=== PATIENT | female | born 1995 | race Caucasian/White ===

== ENCOUNTER 2023-06-08 13:15 | Emergency (ER) | payer OTHER ==
[2023-06-08 13:54] VITALS: RESP 16; BMI 28.3
[2023-06-08] MEDS ORDERED: SODIUM CHLORIDE 0.9% 1000 ML INFUS.BAG IV ONE (14:18)
[2023-06-08] MEDS ORDERED: KETOROLAC TROMETHAMINE 15 MG/ML VIAL IVPUSH ONE (14:18)
[2023-06-08] MEDS ORDERED: FAMOTIDINE 20 MG/50 ML IVPB 20 MG/50 ML MG IVPB ONE ×2 (14:18→14:36)
[2023-06-08] MEDS ORDERED: ONDANSETRON 4 MG/2 ML VIAL IVPUSH ONE (14:18)
[2023-06-08 14:31] LABS: EPITHELIAL CELLS 0-5 /hpf
[2023-06-08] MEDS ORDERED: ONDANSETRON 4 MG/2 ML VIAL ONE (14:36)
[2023-06-08] MEDS ORDERED: KETOROLAC TROMETHAMINE 15 MG/ML VIAL ONE (14:36)
[2023-06-08 15:45] LABS: HEMATOCRIT 37.7 % (32.4-45.2); HEMOGLOBIN 12.3 G/dL (10.7-15.3); MCH 25.1 pg (25.7-33.7); MCHC 32.7 g/dl (32.0-36.0); MEAN PLT VOLUME 10.8 fl (7.5-11.1); PLATELET COUNT 264.3 10^3/uL (134-434); RDW 15.4 % (11.6-15.6); WHITE BLOOD COUNT 12.7 10^3/uL (4.0-10.8)
[2023-06-08 15:46] LABS: INR 1.03 (0.83-1.09)
[2023-06-08 15:49] LABS: ACTIVATED PTT 28.8 SECONDS (25.2-36.5)
[2023-06-08 16:10] LABS: ALBUMIN 4.2 g/dl (3.4-5.0); BILIRUBIN,TOTAL 0.3 mg/dl (0.2-1); CALCIUM 9.5 mg/dl (8.5-10.1); CREATININE 1.2 mg/dl (0.6-1.3); POTASSIUM 4.2 mmol/L (3.5-5.1); TOT PROT 7.2 g/dl (6.4-8.2)
[2023-06-08] MEDS ORDERED: CEPHALEXIN MONOHYDRATE 500 MG CAPSULE (UD) PO ONE (17:18)
[2023-06-08 17:21] LABS: PLATELET ESTIMATE ADEQUATE
[2023-06-08 17:26] VITALS: BP 156/103; PULSE 58; TEMP 98.6
[2023-06-08] MEDS ORDERED: CEPHALEXIN MONOHYDRATE 500 MG CAPSULE (UD) ONE (17:29)
== END 2023-06-08 17:37 | disposition home or self-care (01) ==
LOC: FER 13:15
PROC: 3E033GC Introduction of Other Therapeutic Substance into Peripheral Vein, Percutaneous Approach (ICD-10-PCS; principal; 2023-06-08)
PROC: 3E0333Z Introduction of Anti-inflammatory into Peripheral Vein, Percutaneous Approach (ICD-10-PCS; 2023-06-08)
PROC: 3E033GC Introduction of Other Therapeutic Substance into Peripheral Vein, Percutaneous Approach (ICD-10-PCS; 2023-06-08)
DX: R10.13 Epigastric pain (principal); R11.0 Nausea; N39.0 Urinary tract infection, site not specified
CPT/HCPCS: 36415; 74176-TC; 80053; 81003; 81015; 83690; 84703; 85027; 85610; 85730; 87086; 99284-25

== ENCOUNTER 2024-03-27 16:37 | Emergency (ER) | payer OTHER ==
[2024-03-27 17:05] VITALS: BP 159/106; PULSE 95; RESP 16; TEMP 98.3; BMI 28.3
[2024-03-27] MEDS ORDERED: IBUPROFEN 400 MG TABLET (FP) PO ONE (17:49)
[2024-03-27] MEDS: IBUPROFEN 400 MG TABLET (FP) PO ONE (17:51)
[2024-03-27 17:58] LABS: HEMATOCRIT 35.6 % (32.4-45.2); HEMOGLOBIN 11.1 G/dL (10.7-15.3); MCH 24.1 pg (25.7-33.7); MCHC 31.2 g/dl (32.0-36.0); MEAN CELL VOLUME 77.3 fl (80-96); MEAN PLT VOLUME 9.9 fl (7.5-11.1); PLATELET COUNT 251.8 10^3/uL (134-434); RBC 4.61 10^6/uL (3.60-5.2); RDW 15.9 % (11.6-15.6); WHITE BLOOD COUNT 9.4 10^3/uL (4.0-10.8)
[2024-03-27 18:10] LABS: ALBUMIN 3.9 g/dl (3.4-5.0); ALK PHOS 70 U/L (45-117); ANION GAP 7 mmol/L (4-13); BILIRUBIN,TOTAL 0.2 mg/dl (0.2-1); CALCIUM 9.6 mg/dl (8.5-10.1); CHLORIDE 108 mmol/L (98-107); CO2 23 mmol/L (21-32); CREATININE 1.3 mg/dl (0.6-1.3); GLUCOSE,RANDOM 85 mg/dl (74-106); POTASSIUM 4.7 mmol/L (3.5-5.1); SGOT/AST 11 U/L (15-37); SGPT/ALT 8 U/L (7-52); SODIUM 138 mmol/L (136-145); TOT PROT 6.8 g/dl (6.4-8.2)
[2024-03-27 18:23] LABS: PLATELET ESTIMATE ADEQUATE
== END 2024-03-27 19:21 | disposition home or self-care (01) ==
LOC: FER 16:37 → SUPCPDRO 16:37 → FER 19:21
DX: R07.89 Other chest pain (principal)
CPT/HCPCS: 36415; 71046-TC-FY; 80053; 84484; 85025; 93005; 99285-25

== ENCOUNTER 2024-09-26 20:43 | Emergency (ER) | payer OTHER ==
[2024-09-26] MEDS ORDERED: KETOROLAC TROMETHAMINE 30 MG/1 ML VIAL ONE (20:49)
[2024-09-26 20:54] VITALS: PULSE 87; RESP 16; TEMP 98.4; BMI 30.1
[2024-09-26] MEDS: KETOROLAC TROMETHAMINE 30 MG/1 ML VIAL IVPUSH ONE (20:57)
[2024-09-26] MEDS: SODIUM CHLORIDE 1,000 ML IV STA (20:58)
[2024-09-26 21:05] LABS: HEMATOCRIT 32.8 % (32.4-45.2); MCH 25.9 pg (25.7-33.7); MCHC 33.5 g/dl (32.0-36.0); MEAN CELL VOLUME 77.3 fl (80-96); MEAN PLT VOLUME 10.3 fl (7.5-11.1); PLATELET COUNT 236.4 10^3/uL (134-434); RBC 4.24 10^6/uL (3.60-5.2); RDW 15.5 % (11.6-15.6); WHITE BLOOD COUNT 9.6 10^3/uL (4.0-10.8)
[2024-09-26 21:15] LABS: PLATELET ESTIMATE ADEQUATE
[2024-09-26 21:19] VITALS: BP 140/92
[2024-09-26 21:19] LABS: EPITHELIAL CELLS 0-5 /hpf; URIC ACID CRYSTALS FEW /hpf (NONE SEEN)
[2024-09-26 21:22] LABS: BILIRUBIN,TOTAL 0.2 mg/dl (0.2-1); CALCIUM 8.7 mg/dl (8.5-10.1); POTASSIUM 4.5 mmol/L (3.5-5.1)
[2024-09-26] MEDS ORDERED: ACETAMINOPHEN INJECTION 100 ML ONE (22:10)
[2024-09-26] MEDS: ACETAMINOPHEN 1000 MG/100 ML BAG IVPB ONE (22:13)
== END 2024-09-26 22:25 | disposition home or self-care (01) ==
LOC: FER 20:43
PROC: 3E033NZ Introduction of Analgesics, Hypnotics, Sedatives into Peripheral Vein, Percutaneous Approach (ICD-10-PCS; principal; 2024-09-26)
PROC: 3E0333Z Introduction of Anti-inflammatory into Peripheral Vein, Percutaneous Approach (ICD-10-PCS; 2024-09-26)
PROC: 3E0337Z Introduction of Electrolytic and Water Balance Substance into Peripheral Vein, Percutaneous Approach (ICD-10-PCS; 2024-09-26)
DX: N23 Unspecified renal colic (principal)
CPT/HCPCS: 36415; 74176-TC; 80053; 81003; 81015; 81025; 85027; 99285-25; J0131